=== PATIENT | female | born 1975 | race Caucasian/White ===

== ENCOUNTER → 2021-08-21 | Outpatient (CLI) | payer BC ==
[~2021-08-21] MED LIST: LISINOPRIL-HCT1 EAC1 PO
[2021-08-21 11:05] LABS: HEMOGLOBIN 11.9 gm/dl (12.3-15.3); RED BLOOD COUNT 4.51 M/UL (4.00-5.10); WHITE BLOOD COUNT 6.1 K/UL (4.5-11.0)
[2021-08-21 11:27] LABS: BUN/CREATININE RATIO 14 (0-10)
== END ==
LOC: OPSV2 10:31
PROVIDERS: Obstetrics & Gynecology
DX: Z01.818 Encounter for other preprocedural examination (principal); N93.9 Abnormal uterine and vaginal bleeding, unspecified
CPT/HCPCS: 36415; 80053; 81001; 85025; 93005

== ENCOUNTER → 2021-08-29 | Day surgery (SDC) | payer BC | END | disposition home or self-care (01) | LOC: OR 06:37 | DX: N72 Inflammatory disease of cervix uteri (principal); N93.9 Abnormal uterine and vaginal bleeding, unspecified; I10 Essential (primary) hypertension; D64.9 Anemia, unspecified; Z20.822 Contact with and (suspected) exposure to COVID-19; Z88.8 Allergy status to other drugs, medicaments and biological substances; R94.31 Abnormal electrocardiogram [ECG] [EKG] | CPT/HCPCS: 84703; J1100; J2001; J2250; J2405; J2704; J3010; J7030; J7120 ==